=== PATIENT | female | born 1985 | race Caucasian/White ===

== ENCOUNTER 2021-02-21 23:36 | Emergency (ER) | payer OTHER ==
[2021-02-21 23:46] VITALS: BP 129/95
[2021-02-21 23:56] LABS: BILIRUBIN,URINE NEGATIVE (NEGATIVE); KETONES,URINE (UA) NEGATIVE (NEGATIVE); LEUKOCYTE ESTERASE, URINE LARGE (NEGATIVE); NITRITE,URINE POSITIVE (NEGATIVE); PROTEIN,URINE 30 mg/dL (NEGATIVE)
[2021-02-22 00:10] LABS: CLARITY,URINE SL. CLOUDY (CLEAR)
[2021-02-22 00:11] LABS: BACTERIA,URINE Few /HPF (None Seen); RBC,URINE 0-5 /HPF (0-5); SQUAMOUS EPITHELIAL CELL,UR FEW Squamous (<= Few); WBC,URINE >25 /HPF (0-5)
[2021-02-22 00:12] LABS: HCG UR QUAL NEGATIVE
[2021-02-22] MEDS ORDERED: NITROFURANTOIN MACRO 100 MG CAPSULE PO STA (00:57)
[2021-02-22] MEDS ORDERED: KETOROLAC 30 MG/ML VIAL IM STA (00:57)
--- NOTE | 2021-02-22 00:58 | ED Physician Documentation ---
History of Present Illness - Stated complaint Stated Complaint: FEMALE - Chief complaint Chief Complaint: UTI - History obtained from History obtained from: Patient - Additonal information Additional information: 35-year-old woman with history of prior UTI presents with increased frequency, dysuria, and suprapubic pain for the past week, gradual onset constant, gradually worsening, nonradiating without associated fever or nausea. Patient endorses back pain from sleeping on the ground while camping but says that is not the same kind of pain is in the suprapubic area. Review of Systems Constitutional: denies: Fever, Chills GI: reports: Abdominal Pain. denies: Nausea, Vomiting : reports: Dysuria, Frequency PD PAST MEDICAL HISTORY - Present Medications Home Medications: Ambulatory Orders Medication Instructions Recorded Confirmed Nitrofurantoin [Macrobid] 100 mg PO BID #10 tab 02/22/21 - Allergies Allergies/Adverse Reactions: Allergies Allergy/AdvReac Type Severity Reaction Status Date / Time No Known Drug Allergies Allergy Verified 02/21/21 23:46 PD ED PE NORMAL - Vitals Vital signs reviewed: Yes - General General: Alert and oriented X 3, No acute distress, Well developed/nourished - HEENT HEENT: Atraumatic, PERRL, EOMI - Neck Neck: Supple, no meningeal sign - Abdomen Abdomen: Non tender, Non distended, Other (Suprapubic discomfort to palpation) - Back Back: No CVA TTP - Derm Derm: Normal color, Warm and dry Results - Vitals Vitals: Vital Signs - 24 hr 02/21/21 23:44 Temperature 37 C Heart Rate 81 Respiratory 16 Rate Blood Pressure 129/95 H O2 Saturation 98 Oxygen O2 Source Room air - Labs Labs: Laboratory Tests 02/21/21 02/21/21 23:45 23:45 Urine Color ORANGE Urine Clarity SL. CLOUDY Urine pH 6.0 Ur Specific Tracy Urine Protein 30 H Urine Glucose (UA) Urine Ketones NEGATIVE Urine Occult Blood Urine Nitrite POSITIVE H Urine Bilirubin NEGATIVE Urine Urobilinogen Ur Leukocyte Esterase LARGE H Urine RBC 0-5 Urine WBC >25 H Ur Squamous Epith Cells FEW Squamous Urine Bacteria Few Urine Culture Comments INDICATED Urine HCG, Qual NEGATIVE PD MEDICAL DECISION MAKING - ED course ED course: 35-year-old woman presents with uncomplicated UTI. Return precautions given. She will take antibiotics and follow-up with her primary doctor. Departure - Departure Disposition: 01 Home, Self Care Clinical Impression: UTI (urinary tract infection) Condition: Good Instructions: ED UTI Cystitis Female Prescriptions: Nitrofurantoin [Macrobid] 100 mg PO BID #10 tab Comments: You were seen in the emergency department for UTI. Take your antibiotics as prescribed and return to the emergency department if you have fevers or new or worsening symptoms or other concerns. Follow-up with your primary doctor. Discharge Date/Time: 02/22/21 01:15
== END 2021-02-22 01:15 | disposition home or self-care (01) ==
LOC: ED 23:36
DX: N39.0 Urinary tract infection, site not specified (principal)
CPT/HCPCS: 81001; 81025; 87086; 87181; 96372; 99283; 99284; A9270